=== PATIENT | male | born 1960 | race African-American/Black ===

== ENCOUNTER 2016-12-23 10:45 | Emergency (ER) | payer OTHER ==
--- NOTE | ~2016-12-23 | EKG ---
PATIENT: CRISTIANO KEARNEY UNIT #: [id number] Ventricular Rate: 84 BPM Atrial Rate: 84 BPM P-R Interval: 124 ms QRS Duration: 76 ms Q-T Interval: 374 ms QTC Calculation(Bezet): 441 ms P [place]: 75 degrees Calculated R [place]: 66 degrees Calculated T [place]: 65 degrees Diagnosis Line: Normal sinus rhythm Diagnosis Line: Nonspecific ST and T wave abnormality Diagnosis Line: Borderline ECG Diagnosis Line: Diagnosis Line: Confirmed by CRISTY SKINNER MD ([id number]) on 12/23/2016 Diagnosis Line: 4:42:25 PM INTERPRETING MD: BRODY GARCIA
--- NOTE | ~2016-12-23 | CR72 ---
[facility] A Service of [facility] RADIOLOGY TEXT RESULTS PATIENT: CRISTIANO KEARNEY LOCATION: [facility] : 60 UNIT #: [id number] AGE: [address]: García Deutsch MD SEX: M ORDER DR: [id number] [facility] [address] [place], [place] [address] [id number] MR#: [id number] #: [id number] NAME: CRISTIANO KEARNEY : 1960 SEX: M STUDY DATE/TIME: 12/23/2016 10:36 UNIT: [facility] ROOM: STUDY DESCRIPTION: CR Chest Single View Portable Attending Physician: García Deutsch M.D. Ordering Physician: García Deutsch M.D. Primary Care Physician: Joyce Shen M.D. MEDICAL IMAGING REPORT This report is preliminary unless electronic signature is present EXAM Portable chest, 1 view, 12/23/2016. HISTORY Palpitations, shortness of air for 1 day. COMPARISON STUDIES 04/02/2006 FINDINGS A single AP portable view of the chest shows both lungs to be clear. The heart is normal in size. The mediastinal contour is normal. No significant bone abnormalities are seen. IMPRESSION Normal portable chest. Dictated by... Dominic Way M.D. THIS IS AN ELECTRONICALLY VERIFIED REPORT Dominic Way M.D. at 12/23/2016 4:57 PM JAYLENE/zenia TD: 12/23/2016 12:09 JOB #: [id number] MEDICAL IMAGING REPORT Page 1 of 1 COPY
[2016-12-23 10:53] LABS: BASOPHIL# 0.1 X10e3 (0-0.3); BASOPHIL% 1.2 % (0-2.5); EOSINOPHIL# 0.1 X10e3 (0-0.7); EOSINOPHIL% 0.9 % (0.0-7.0); HEMATOCRIT 38.8 % (38.0-50.0); LYMPHOCYTE% 14.9 % (17.0-45.0); MEAN CELL VOLUME 86.1 FL (83-96); MEAN CORPUSCULAR HGB CONC 33.6 g/dL (30-36); MEAN PLATELET VOLUME 10.4 FL (6.5-11.5); MONOCYTE# 0.3 X10e3 (0-1.0); MONOCYTE% 5.2 % (3.0-12.0); NEUTROPHIL# 4.9 X10e3 (1.5-7.1); NEUTROPHIL% 77.8 % (40-75); PLATELET COUNT 183 X10e3 (140-420); RED BLOOD COUNT 4.51 X10e (3.90-5.60); WHITE BLOOD COUNT 6.4 X10e3 (4.0-10.5)
[2016-12-23 11:03] LABS: POC - CKMB <1.0 ng/mL (0.0-7.9); POC - TROPONIN <0.05 ng/mL (<=0.05)
[2016-12-23 11:03] LABS: DIFF IND NO
[2016-12-23 11:39] LABS: CALCIUM SERUM 9.2 mg/dL (8.4-10.2); GLOM FILT RATE Estimated 97.1 mL/min (>60); POTASSIUM 3.6 mmol/L (3.5-5.1)
[2016-12-23 11:41] LABS: URINE SOURCE CLEAN CATCH
[2016-12-23 11:59] LABS: URINE APPEARANCE CLEAR; URINE BILIRUBIN NEG (NEG); URINE BLOOD NEG (NEG); URINE COLOR YELLOW; URINE GLUCOSE NEG (NEG); URINE KETONE NEG (NEG); URINE LEUKOCYTE ESTERASE NEG (NEG); URINE NITRATE NEG (NEG); URINE PROTEIN NEG (NEG); URINE SPECIFIC GRAVITY 1.014 (1.003-1.035); URINE UROBILINOGEN 0.2 MG/DL (NEG)
[2016-12-23 12:14] LABS: AMPHETAMINE NEG (NEG); BARBITURATES NEG (NEG); BENZODIAZEPINES NEG (NEG); COCAINE NEG (NEG); CULTURE INDICATED? NO; MARIJUANA NEG (NEG); OPIATES NEG (NEG); TRICYCLIC ANTIDEPRESSANTS NEG (NEG); U METHADONE NEG (NEG)
== END 2016-12-23 12:41 | disposition home or self-care (01) ==
LOC: CED 10:45
PROVIDERS: Emergency Medicine
DX: R00.2 Palpitations (principal); I10 Essential (primary) hypertension
CPT/HCPCS: 36415; 71010; 80048; 80307; 81003; 82553; 84484; 85025; 93005; 96360; 99284

== ENCOUNTER 2017-01-14 05:33 | Emergency (ER) | payer OTHER ==
--- NOTE | ~2017-01-14 | EKG ---
PATIENT: CRISTIANO KEARNEY UNIT #: [id number] Ventricular Rate: 78 BPM Atrial Rate: 78 BPM P-R Interval: 126 ms QRS Duration: 84 ms Q-T Interval: 386 ms QTC Calculation(Bezet): 440 ms P [place]: 82 degrees Calculated R [place]: 81 degrees Calculated T [place]: 79 degrees Diagnosis Line: Normal sinus rhythm Diagnosis Line: Normal ECG Diagnosis Line: No previous ECGs available Diagnosis Line: Confirmed by MOUSTAPHA GOLDSTEIN MD ([id number]) on 01/14/2017 Diagnosis Line: 6:34:57 PM INTERPRETING MD: TRISTON GARCIA
[2017-01-14 04:51] LABS: POC - CKMB <1.0 ng/mL (0.0-7.9); POC - TROPONIN <0.05 ng/mL (<=0.05)
[2017-01-14 04:55] LABS: BASOPHIL# 0.1 X10e3 (0-0.3); BASOPHIL% 1.1 % (0-2.5); EOSINOPHIL# 0.3 X10e3 (0-0.7); EOSINOPHIL% 6.7 % (0.0-7.0); HEMATOCRIT 39.1 % (38.0-50.0); LYMPHOCYTE# 1.9 X10e3 (1.0-3.5); LYMPHOCYTE% 39.4 % (17.0-45.0); MEAN CELL VOLUME 86.6 FL (83-96); MEAN CORPUSCULAR HEMOGLOBIN 28.7 PG (28-34); MEAN CORPUSCULAR HGB CONC 33.1 g/dL (30-36); MEAN PLATELET VOLUME 10.2 FL (6.5-11.5); MONOCYTE# 0.3 X10e3 (0-1.0); MONOCYTE% 6.3 % (3.0-12.0); NEUTROPHIL# 2.3 X10e3 (1.5-7.1); NEUTROPHIL% 46.5 % (40-75); PLATELET COUNT 157 X10e3 (140-420); RED BLOOD COUNT 4.51 X10e (3.90-5.60); RED CELL DISTRIBUTION WIDTH 13.2 % (11.0-15.5); WHITE BLOOD COUNT 4.9 X10e3 (4.0-10.5)
[2017-01-14 05:05] LABS: DIFF IND NO
[2017-01-14 05:29] LABS: BUN/CREATININE RATIO 10.9; CALCIUM SERUM 8.9 mg/dL (8.4-10.2); CREATININE SERUM 1.1 mg/dL (0.6-1.4); GLOM FILT RATE Estimated 86.5 mL/min (>60); POTASSIUM 3.5 mmol/L (3.5-5.1)
[2017-01-14 06:09] LABS: THYROID STIMULATING HORMONE 1.63 uIU/ml (0.34-5.60)
[2017-01-14 06:18] LABS: FREE THYROXIN (T4) 0.78 ng/dL (0.58-1.64)
== END 2017-01-14 07:22 | disposition home or self-care (01) ==
LOC: CED 05:33
PROVIDERS: Nurse Practitioner Family
DX: R00.2 Palpitations (principal); I10 Essential (primary) hypertension
CPT/HCPCS: 36415; 80048; 82553; 84439; 84443; 84484; 85025; 93005; 99283